=== PATIENT | female | born 1990 | race Caucasian/White ===

== ENCOUNTER 2016-08-03 09:16 | Day surgery (SDC) | payer BC ==
[~2016-08-03 09:16] MED LIST: Lactated Ringers 1,000 ML IV SCH; Lidocaine 1%/Sod Bicarbonate in NS 8.4% 1 ML Syringe PRN; Sodium Chloride 0.9% 10 ML Syringe FLUSH PRN
[2016-08-03] MEDS ORDERED: Bupivacaine 0.5%/EPINEPHrine 1:200,000 50 ML MDV ONE (10:06)
[2016-08-03] MEDS ORDERED: Lidocaine 1% with EPINEPHrine 1:100,000 20 ML MDV ONE (10:06)
[2016-08-03] MEDS ORDERED: Lidocaine 1% 30 ML SDV INJECT ONE (10:09)
[2016-08-03] MEDS ORDERED: Bacitracin Oint 15 GM Tube ONE (10:21)
[2016-08-03] MEDS ORDERED: Propofol 200 MG/20 ML SDV ONE ×2 (10:28→12:16)
[2016-08-03] MEDS ORDERED: Midazolam 1 MG/ML 2 ML SDV ONE (10:28)
[2016-08-03] MEDS ORDERED: fentaNYL 100 MCG/2 ML SDV ONE (10:28)
[2016-08-03] MEDS ORDERED: Lidocaine 1% 4 ML ONE (10:36)
[2016-08-03] MEDS ORDERED: ceFAZolin 1 GM Vial ONE (10:37)
--- NOTE | 2016-08-03 10:48 | PCM.PREANE ---
Preanesthetic Assessment - Procedure Proposed Procedure: Excision of wire localized Right breast lesion - Anesthesia/Transfusion/Family Hx Anesthesia History: Prior Anesthesia Without Reaction Family History of Anesthesia Reaction: No Transfusion History: No Prior Transfusion(s) Intubation History: Unknown Additional History: DVT in 2009 - Review of Systems General: No Symptoms Pulmonary: No Symptoms Cardiovascular: No Symptoms Gastrointestinal: No symptoms Neurological: No Symptoms Other: Reports: Easy Bleeding, Easy Bruising (pt on baby aspirin ) - Physical Assessment NPO Status Date: 08/02/16 NPO Status Time: 21:00 O2 Sat by Pulse Oximetry: 97 Respiratory Rate: 16 Vital Signs: Last Vital Signs Temp 36.6 C 08/03/16 09:35 Pulse 64 08/03/16 09:35 Resp 16 08/03/16 09:35 BP 117/71 08/03/16 09:35 Pulse Ox 97 08/03/16 09:35 Height: 1.8 m Weight: 75.296 kg ASA Class: 2 Mental Status: Alert & Oriented x3 Airway Class: Mallampati = 1 Dentition: Reports: Normal Dentition Thyro-Mental Finger Breadths: 3 Mouth Opening Finger Breadths: 3 ROM/Head Extension: Full Lungs: Clear to auscultation, Normal respiratory effort Cardiovascular: Regular Rate, Regular Rhythm - Lab Values: Laboratory Last Values Urine HCG, Qual Negative (NEGATIVE) 08/03/16 09:47 - Allergies Allergies/Adverse Reactions: Allergies Allergy/AdvReac Type Severity Reaction Status Date / Time sulfamethoxazole Allergy Other Verified 08/02/16 12:54 [From Bactrim] tetanus and diphtheria Allergy Other Verified 08/02/16 12:54 toxoids trimethoprim [From Bactrim] Allergy Other Verified 08/02/16 12:54 - Blood Blood Available: No Product(s) Available: None - Anesthesia Plan Pre-Op Medication Ordered: None - Acknowledgements Anesthesia Type Planned: General Anesthesia (LMA if MAC is not tolerated ), MAC Pt an Appropriate Candidate for the Planned Anesthesia: Yes Alternatives and Risks of Anesthesia Discussed w Pt/Guardian: Yes Pt/Guardian Understands and Agrees with Anesthesia Plan: Yes PreAnesthesia Questionnaire Cardiovascular History: Reports: Blood Clots/VTE/DVT Hematologic History: Reports: Other (See Below) Other Hematologic History: factor v leiden - Past Surgical History HEENT Surgical History: Reports: Adenoidectomy, Oral Surgery, Other (See Below) Other HEENT Surgeries/Procedures: wisdom teeth Female Surgical History: Reports: Breast Biopsy - SUBSTANCE USE Smoking Status *Q: Never Smoker Second Hand Smoke Exposure: No Recreational Drug Use History: No - HOME MEDS Home Medications: Home Meds Aspirin [Adult Low Dose Aspirin EC] 81 mg PO DAILY 08/02/16 [History] Pnv No.95/Ferrous Fum/Folic AC [ Multivitamin Tablet] 1 tab PO DAILY [History] - CURRENT (IN HOUSE) MEDS Current Meds: Current Medications Lactated Ringer's (Ringers, Lactated) 1,000 mls @ 125 mls/hr IV ASDIRECTED LORRIE Stop: 08/03/16 23:00 Lidocaine/Sodium Bicarbonate (Buffered Lidocaine 1% In Ns 8.4%) 0.25 ml .XX ONETIME PRN PRN Reason: Prior to IV Start Stop: 08/03/16 18:00 Sodium Chloride (Saline Flush) 10 ml FLUSH ASDIRECTED PRN PRN Reason: Keep Vein Open Stop: 08/03/16 18:00 Discontinued Medications Bacitracin (Bacitracin Oint) Confirm Administered Dose 15 gm .ROUTE .STK-MED ONE Stop: 08/03/16 10:22 Bupivacaine HCl/Epinephrine Bitart (Marcaine 0.5%/Epinephrine 1:200,000) Confirm Administered Dose 50 ml .ROUTE .STK-MED ONE Stop: 08/03/16 10:07 Cefazolin Sodium (Ancef) Confirm Administered Dose 2 gm .ROUTE .STK-MED ONE Stop: 08/03/16 10:38 Fentanyl (Sublimaze) Confirm Administered Dose 100 mcg .ROUTE .STK-MED ONE Stop: 08/03/16 10:29 Lidocaine HCl (Xylocaine-Mpf 1%) Confirm Administered Dose 4 mls @ as directed .ROUTE .STK-MED ONE Stop: 08/03/16 10:37 Lidocaine HCl (Xylocaine-Mpf 1%) 30 ml INJECT ONETIME ONE Stop: 08/03/16 10:10 Lidocaine/Epinephrine (Xylocaine 1% With Epinephrine 1:100,000) Confirm Administered Dose 20 ml .ROUTE .STK-MED ONE Stop: 08/03/16 10:07 Midazolam HCl (Versed 1 Mg/Ml) Confirm Administered Dose 2 mg .ROUTE .STK-MED ONE Stop: 08/03/16 10:29 Propofol (Diprivan 20 Ml) Confirm Administered Dose 400 mg .ROUTE .STK-MED ONE Stop: 08/03/16 10:29
[2016-08-03] MEDS ORDERED: Ketamine 500 mg/10 ML MDV ONE (11:26)
[2016-08-03] MEDS ORDERED: Ondansetron 4 MG/2 ML SDV ONE (11:57)
[2016-08-03] MEDS ORDERED: fentaNYL 100 MCG/2 ML SDV IVPUSH PRN (12:40)
--- NOTE | 2016-08-03 12:44 | PCM.OPNOTE ---
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 Right breast excisional biopsy specimen 2. Additional posterior margin 3. Additional medial superior margin Fluid Replacement, Intraop: 900 (mL crystalloid ) EBL in mLs: 5 Complications: None Condition: Good Free Text/Narrative:: INDICATION FOR PROCEDURE: The patient is a 25-year-old woman who is [place] by BRIDGETTE Earl for evaluation of a right breast lesion. The patient underwent an ultrasound-guided right breast core needle biopsy which demonstrated a fibroadenoma versus phyllodes tumor. The lesion was less than 1 cm in size. She presents today for excision of the lesion. Risk and benefits have been reviewed with her. She found these acceptable and agreed to proceed. DESCRIPTION OF PROCEDURE: The patient was taken to the operating room and placed in the supine position. After adequate sedation, sequential compressive devices were placed on the bilateral lower extremities and were functional throughout the case. Preoperative antibiotics were administer as per protocol. The right breast was prepped and draped in usual sterile fashion. Local anesthetic was injected in the area of the planned incision on the right areola. A circumareolar incision was made using a 15 blade. This was carried down through the breast tissue. The wire was followed into the area near the clip. Unfortunately there was not a post wire placement image to assess the where the wire was in relation to the clip. A biopsy specimen was obtained that was roughly 2 cm x 2 cm. Margins were marked using a silk suture, double stitch anteriorly, long stitch laterally, short stitch superiorly. The specimen was sent to radiology and there was no evidence of clip present in the specimen. 2 additional small specimens were obtained from the margins of the original biopsy cavity, each measuring about 1.5 cm x 1.5 cm, were then taken, an additional posterior margin and an additional medial superior margin. These specimens were also marked using a silk suture. They were sent for radiograph which did demonstrate the clip being present. The wound was then irrigated and hemostasis was obtained using electrocautery. The underlying breast tissue was reapproximated using 3-0 Vicryl suture in an interrupted fashion. The skin was then closed using a running subcuticular 4-0 Monocryl suture. Dermabond was applied. Fluffs and a breast binder was then applied. The patient was awakened from anesthesia and transferred to recovery room in stable condition having tolerated the procedure well. POSTOPERATIVE PLAN: I discussed with the patient and her my intraoperative findings and postoperative care recommendations. She is to wear compressive bra continuously for the next 2 weeks except when showering. She will follow-up with me in approximately 2 weeks. She has been provided with a prescription for [place] 5/325mg , Zofran ODT, and senna S. She is to call the office with any questions or concerns prior to her appointment. 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 She may continue her baby aspirin.
[2016-08-03] MEDS ORDERED: Acetaminophen/HYDROcodone 325-5 MG Tab PO ONE (12:53)
--- NOTE | 2016-08-03 12:54 | US ---
Needle localization of right breast nodule Procedure was explained to the patient. Patient agreed to the exam and consent had been signed. Patient prepped and draped in the usual fashion. Skin and deep tissues anesthetized with 1% lidocaine. Localization needle then placed through the solid abnormality. Hookwire then placed through the needle and needle removed. Hookwire confirmed to remain within the nodule at termination of ultrasound procedure. Impression: 1. Successful placement of hookwire through solid right breast nodule. Diagnostic code #2
--- NOTE | 2016-08-03 13:25 | PCM48HPAN ---
Post Anesthesia Note - EVALUATION WITHIN 48HRS OF ANESTHETIC Vital Signs in Normal Range: Yes Patient Participated in Evaluation: Yes Respiratory Function Stable: Yes Airway Patent: Yes Cardiovascular Function Stable: Yes Hydration Status Stable: Yes Pain Control Satisfactory: Yes Nausea and Vomiting Control Satisfactory: Yes Mental Status Recovered: Yes
[2016-08-03 13:40] VITALS: BP 110/72
--- NOTE | 2016-08-04 10:13 | MY ---
Specimen radiograph: Single radiograph was obtained showing localization wire in place. Nodular density is seen within the specimen confirming removal of localized nodule. Impression: 1. Specimen radiograph showing nodule within the removed sample compatible with successful biopsy. Diagnostic code #2
--- NOTE | 2016-08-04 10:13 | MY ---
Specimen radiograph: Two lumpectomy samples were received and radiographed. Stereotactic marking clip is seen. No additional abnormality is seen on specimen radiograph exam. Impression: 1. Removal of stereotactic marking clip. Diagnostic code #2
== END 2016-08-03 13:35 | disposition home or self-care (01) ==
LOC: JD.SDS 09:16
PROVIDERS: ATTEND Surgery
DX: D24.1 Benign neoplasm of right breast (principal); N60.31 Fibrosclerosis of right breast; Z88.1 Allergy status to other antibiotic agents; Z88.2 Allergy status to sulfonamides; Z88.8 Allergy status to other drugs, medicaments and biological substances; Z79.899 Other long term (current) drug therapy
CPT/HCPCS: 19120; 76098; 76942; 81025; 88305; A9270; J0690; J2250; J2405; J3010; J7120; 00400; J2704

== ENCOUNTER 2018-06-22 02:11 | Inpatient (IN) | payer BC ==
[2018-06-22] MEDS ORDERED: Lidocaine 1% 50 ML MDV INJECT ONE (02:37)
[2018-06-22] MEDS ORDERED: Calcium Carbonate 500 MG Tab.Chew PO PRN (02:37)
[2018-06-22] MEDS ORDERED: Ondansetron 4 MG/2 ML SDV IVPUSH PRN ×2 (02:37→03:26)
[2018-06-22] MEDS ORDERED: Sodium Chloride 0.9% 10 ML Syringe FLUSH PRN (02:37)
[2018-06-22] MEDS ORDERED: Nalbuphine 20 MG/ML 1 ML Syringe IVPUSH PRN (02:37)
[2018-06-22] MEDS: Lactated Ringers 1,000 ML IV SCH ×4 (02:54→08:26)
[2018-06-22] MEDS ORDERED: fentaNYL/Bupivacaine-NS 2 MCG/ML-0.125%/PF 100 ML Bag EPIDUR PRN (03:26)
[2018-06-22] MEDS ORDERED: ePHEDrine 50 MG/ML SDV IVPUSH PRN (03:26)
[2018-06-22] MEDS ORDERED: fentaNYL 100 MCG/2 ML SDV EPIDUR PRN (03:26)
--- NOTE | 2018-06-22 03:29 | PCM.PREANE ---
Preanesthetic Assessment - Anesthesia/Transfusion/Family Hx Anesthesia History: Prior Anesthesia Without Reaction Family History of Anesthesia Reaction: No Transfusion History: No Prior Transfusion(s) Intubation History: Unknown - Review of Systems General: No Symptoms Pulmonary: No Symptoms Cardiovascular: No Symptoms Gastrointestinal: No Symptoms (GERD) Neurological: No Symptoms Other: Reports: None (on lovenox for history of DVT in 2009/last dose of lovenox was 2100 on 06/20/2017), Easy Bleeding, Easy Bruising - Physical Assessment NPO Status Date: 06/21/18 NPO Status Time: 22:00 Pulse: 83 O2 Sat by Pulse Oximetry: 100 Respiratory Rate: 18 Blood Pressure: 130/84 Temperature: 36.8 C Vital Signs: Last Vital Signs Temp 36.8 C 06/22/18 03:00 Pulse 83 06/22/18 03:00 Resp 18 06/22/18 03:00 BP 130/84 06/22/18 03:00 Pulse Ox 100 06/22/18 03:00 Height: 1.8 m Weight: 93.848 kg ASA Class: 2 Mental Status: Alert & Oriented x3 Airway Class: Mallampati = 2 Dentition: Reports: Normal Dentition (braces noted), Caries Thyro-Mental Finger Breadths: 3 Mouth Opening Finger Breadths: 3 ROM/Head Extension: Full Lungs: Clear to Auscultation, Normal Respiratory Effort Cardiovascular: Regular Rate, Regular Rhythm, No Murmurs - Lab Values: Laboratory Last Values WBC 13.28 K/mm3 (3.98-10.04) H 06/22/18 02:50 RBC 4.07 M/mm3 (3.98-5.22) 06/22/18 02:50 Hgb 12.8 gm/L (11.2-15.7) 06/22/18 02:50 Hct 36.5 % (34.1-44.9) 06/22/18 02:50 MCV 89.7 fl (79.4-94.8) 06/22/18 02:50 MCH 31.4 pg (25.6-32.2) 06/22/18 02:50 MCHC 35.1 g/dl (32.2-35.5) 06/22/18 02:50 RDW Std Deviation 45.3 fL (36.4-46.3) 06/22/18 02:50 Plt Count 157 K/mm3 (182-369) L 06/22/18 02:50 MPV 11.3 fl (9.4-12.3) 06/22/18 02:50 Above labs reviewed and noted and within acceptable ranges to proceed with epidural if desired. - Allergies Allergies/Adverse Reactions: Allergies Allergy/AdvReac Type Severity Reaction Status Date / Time tetanus and diphtheria Allergy Other Verified 08/02/16 12:54 toxoids - Anesthesia Plan Pre-Op Medication Ordered: None - Acknowledgements Anesthesia Type Planned: Epidural Pt an Appropriate Candidate for the Planned Anesthesia: Yes Alternatives and Risks of Anesthesia Discussed w Pt/Guardian: Yes Pt/Guardian Understands and Agrees with Anesthesia Plan: Yes PreAnesthesia Questionnaire Cardiovascular History: Reports: Blood Clots/VTE/DVT Hematologic History: Reports: Other (See Below) Other Hematologic History: factor v leiden - Past Surgical History HEENT Surgical History: Reports: Adenoidectomy, Oral Surgery, Other (See Below) Other HEENT Surgeries/Procedures: wisdom teeth Female Surgical History: Reports: Breast Biopsy - HOME MEDS Home Medications: Home Meds Enoxaparin [Lovenox] 40 mg SUBCUT DAILY 06/22/18 [History] Pnv No.122/Iron/Folic Acid [ Multi Tablet] 1 each PO DAILY 06/22/18 [ History] - CURRENT (IN HOUSE) MEDS Current Meds: Current Medications Calcium Carbonate/Glycine (Tums) 1,000 mg PO Q2H PRN PRN Reason: Indigestion Last Admin: 06/22/18 02:59 Dose: 1,000 mg Lactated Ringer's (Ringers, Lactated) 1,000 mls @ 100 mls/hr IV ASDIRECTED LORRIE Last Admin: 06/22/18 02:54 Dose: 999 mls/hr Nalbuphine HCl (Nubain) 10 mg IVPUSH Q2H PRN PRN Reason: pain Ondansetron HCl (Zofran) 4 mg IVPUSH Q4H PRN PRN Reason: Nausea/Vomiting Last Admin: 06/22/18 03:04 Dose: 4 mg Sodium Chloride (Saline Flush) 10 ml FLUSH ASDIRECTED PRN PRN Reason: Keep Vein Open Discontinued Medications Lidocaine HCl (Xylocaine 1%) 20 ml INJECT ONETIME ONE Stop: 06/22/18 02:38
[2018-06-22] MEDS ORDERED: Phenylephrine 1 MG in Sodium Chloride 0.9% 10 ML IV SCH (03:30)
--- NOTE | 2018-06-22 08:06 | PCM.LDHP ---
L&D History of Present Illness - General Date of Service: 06/22/18 Admit Problem/Dx: Patient Status Order with Admit Dx/Problem 06/22/18 02:37 Patient Status [ADT] Routine 06/22/18 02:57 Patient Status [ADT] Routine Admission Diagnosis/Problem Admission Diagnosis/Problem Active labor Source of Information: Patient History Limitations: Reports: No Limitations - History of Present Illness Introduction:: 27-year-old 000 ELY 06/22/18 at estimated gestational age of 40 weeks 0 days presented to labor and delivery with contractions at 0-16 hours on . At that time cervix 4-5 cm dilated 80% effaced -2 posterior and soft. Bulging bag of aldridge. Amniotomy performed at 0752 hrs. light meconium-stained amnionic fluid. 04/03/18 blood type A positive, antibody screen negative rubella negative (needs MMR after delivery), syphilis IgG nonreactive hepatitis B surface antigen nonreactive HIV normal (nonreactive) 04/03/18 hemoglobin 12.01 hour OB glucose screen 133 hour glucose 85 antibody screen negative 05/29/18 GBS not detected. Patient has factor V Leiden deficiency has been taking Lovenox 40 mg taking 1 injection subcutaneous daily until 48 hours ago. Patient has had prior DVT SCDs in place and functioning. Plan labor and delivery. This note was created, at least in part, by the use of [employer] voice dictation system. Inadvertent typographical errors, due to software recognition problems, may exist. Timing/Duration: Reports: minutes:, hour(s):, intermittent Location, : Reports: Abdomen, Lower back, Pelvic, Uterus Quality: Reports: Ache, Pressure Pain Score: 7 Improves with: Reports: None Worsens with: Reports: None - Related Data Allergies/Adverse Reactions: Allergies Allergy/AdvReac Type Severity Reaction Status Date / Time tetanus and diphtheria Allergy Other Verified 08/02/16 12:54 toxoids Home Medications: Home Meds Enoxaparin [Lovenox] 40 mg SUBCUT DAILY 06/22/18 [History] Pnv No.122/Iron/Folic Acid [ Multi Tablet] 1 each PO DAILY 06/22/18 [ History] Past Medical History Cardiovascular History: Reports: Blood Clots/VTE/DVT 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: Hematologic History: Reports: Other (See Below) Other Hematologic History: factor v leiden - Past Surgical History HEENT Surgical History: Reports: Adenoidectomy, Oral Surgery, Other (See Below) Other HEENT Surgeries/Procedures: wisdom teeth Female Surgical History: Reports: Breast Biopsy Social & Family History - Family History Family Medical History: Noncontributory - Tobacco Use Smoking Status *Q: Never Smoker - Recreational Drug Use Recreational Drug Use: No H&P Review of Systems - Review of Systems: Review Of Systems: See Below General: Reports: No Symptoms HEENT: Reports: No Symptoms Pulmonary: Reports: No Symptoms Cardiovascular: Reports: No Symptoms Gastrointestinal: Reports: No Symptoms Genitourinary: Reports: No Symptoms Musculoskeletal: Reports: No Symptoms Skin: Reports: No Symptoms Psychiatric: Reports: No Symptoms Neurological: Reports: No Symptoms Hematologic/Lymphatic: Reports: No Symptoms Immunologic: Reports: No Symptoms L&D Exam - Exam Exam: See Below - Vital Signs Vital Signs: Last Vital Signs Temp 98.2 F 06/22/18 03:40 Pulse 76 06/22/18 05:31 Resp 18 06/22/18 03:40 BP 119/66 06/22/18 04:30 Pulse Ox 100 06/22/18 03:40 Weight: 206 lb 14.4 oz - OB Specific Fundal Height In cm: 39 Contraction Duration (sec): 60 Contraction Frequency (min): 3 Contraction Intensity: Moderate to Strong Movement: Active Heart Tones: Present Heart Tones per Min: 125 Heart Rate (FHR) Variability: Moderate (6-25 bmp) Presentation: Vertex - Das Score Das Score Cervix Position: Anterior Das Score Consistency: Soft Das Score Effacement: >80% Das Score Dilation: > 5 cm Das Score 's Station: -1 ,0 (At 0752 hrs.) Das Score Total: 12 - Exam General: Alert, Oriented HEENT: Conjunctiva Clear, Mucosa Moist & [place] Neck: Supple, Trachea Midline Lungs: Clear to Auscultation, Normal Respiratory Effort Cardiovascular: Regular Rate, Regular Rhythm GI/Abdominal Exam: Normal Bowel Sounds, Soft, Non-Tender Extremities: Normal Inspection, Normal Range of Motion, Non-Tender, No Pedal Edema, Normal Capillary Refill Skin: Warm, Dry, Intact Psychiatric: Alert, Normal Affect, Normal Mood - Patient Data Lab Results Last 24 hrs: Laboratory Results - last 24 hr 06/22/18 06/22/18 Range/Units 02:50 02:50 WBC 13.28 H (3.98-10.04) K/mm3 RBC 4.07 (3.98-5.22) M/mm3 Hgb 12.8 (11.2-15.7) gm/L Hct 36.5 (34.1-44.9) % MCV 89.7 (79.4-94.8) fl MCH 31.4 (25.6-32.2) pg MCHC 35.1 (32.2-35.5) g/dl RDW Std Deviation 45.3 (36.4-46.3) fL Plt Count 157 L (182-369) K/mm3 MPV 11.3 (9.4-12.3) fl Blood Type A POSITIVE Gel Antibody Screen Negative Result Diagrams: 06/22/18 02:50 - Problem List (1) 40 weeks gestation of SNOMED Code(s): 78866711 ICD Code: Z3A.40 - 40 WEEKS GESTATION OF Status: Acute Current Visit: Yes (2) Thin meconium stained amniotic fluid SNOMED Code(s): 120478104 ICD Code: P96.83 - MECONIUM STAINING Status: Acute Current Visit: Yes (3) Factor V deficiency SNOMED Code(s): 4327592 ICD Code: D68.2 - HEREDITARY DEFICIENCY OF OTHER CLOTTING FACTORS Status: Acute Current Visit: Yes Problem List Initiated/Reviewed/Updated: No Orders Last 24hrs: Active Orders 24 hr Category Date Time Status Patient Status [ADT] Routine ADT 06/22/18 02:57 Active Activity as Tolerated [RC] PFP Care 06/22/18 02:37 Active Antiembolic Devices [RC] PER UNIT ROUTINE Care 06/22/18 05:10 Active Communication Order [RC] ASDIRECTED Care 06/22/18 02:37 Active Insert Urinary Catheter [OM.PC] Q24H Care 06/22/18 02:45 Ordered Notify Provider [RC] ASDIRECTED Care 06/22/18 03:26 Active Notify Provider [RC] PFP Care 06/22/18 02:37 Active Notify Provider [RC] PRN Care 06/22/18 02:37 Active Peripheral IV Care [RC] Q2HR Care 06/22/18 02:37 Active Urinary Catheter Assessment [RC] ASDIRECTED Care 06/22/18 02:37 Active Vital Signs [RC] PER UNIT ROUTINE Care 06/22/18 02:37 Active Regular Diet [DIET] Diet 06/22/18 Breakfast Active PATIENT RETYPE [BBK] Routine Lab 06/22/18 03:42 Ordered RAPID PLASMA REAGIN,RPR [CHEM] Routine Lab 06/22/18 02:50 Received Calcium Carbonate [Tums] Med 06/22/18 02:37 Active 1,000 mg PO Q2H PRN Lactated Ringers [Ringers, Lactated] 1,000 ml Med 06/22/18 02:45 Active IV ASDIRECTED Nalbuphine [Nubain] Med 06/22/18 02:37 Active 10 mg IVPUSH Q2H PRN Ondansetron [Zofran] Med 06/22/18 03:26 Active 4 mg IVPUSH ONETIME PRN Ondansetron [Zofran] Med 06/22/18 02:37 Active 4 mg IVPUSH Q4H PRN Oxytocin [Pitocin] 20 unit Med 06/22/18 06:30 Active Lactated Ringers [Ringers, Lactated] 1,000 ml IV ASDIRECTED Phenylephrine [Rich-Synephrine] 1 mg Med 06/22/18 03:30 Active Sodium Chloride 0.9% [Normal Saline] 10 ml IV TITRATE Sodium Chloride 0.9% [Saline Flush] Med 06/22/18 02:37 Active 10 ml FLUSH ASDIRECTED PRN ePHEDrine [ePHEDrine sulfate] Med 06/22/18 03:26 Active 5 mg IVPUSH ASDIRECTED PRN fentaNYL [Sublimaze] Med 06/22/18 03:26 Active 100 mcg EPIDUR Q3H PRN fentaNYL/Bupivacaine/NS/PF [[id number] 2 MCG/ML- Med 06/22/18 03:26 Active 0.125%] 100 ml EPIDUR ASDIRECTED PRN Electronic Heart Tones Ext w TOCO [WOMSER] Oth 06/22/18 02:37 Ordered Routine Electronic Heart Tones Internal [WOMSER] Per Unit Oth 06/22/18 02:37 Ordered Routine Peripheral IV Insertion Adult [OM.PC] Routine Oth 06/22/18 02:37 Ordered SCD [Sequential Compression Device] [OM.PC] Routine Oth 06/22/18 05:10 Ordered Resuscitation Status Routine Resus Stat 06/22/18 02:37 Ordered Medication Orders Calcium Carbonate/Glycine (Tums) 1,000 mg PO Q2H PRN PRN Reason: Indigestion Last Admin: 06/22/18 02:59 Dose: 1,000 mg Ephedrine Sulfate (Ephedrine Sulfate) 5 mg IVPUSH ASDIRECTED PRN PRN Reason: Hypotension Fentanyl (Sublimaze) 100 mcg EPIDUR Q3H PRN PRN Reason: Pain Last Admin: 06/22/18 03:44 Dose: 100 mcg Fentanyl/Bupivacaine HCl (Ujejehbq-Wxgtx-Gr 2 Mcg/Ml-0.125%) 100 ml EPIDUR ASDIRECTED PRN PRN Reason: Pain Last Admin: 06/22/18 03:45 Dose: 100 ml Lactated Ringer's (Ringers, Lactated) 1,000 mls @ 100 mls/hr IV ASDIRECTED LORRIE Last Admin: 06/22/18 04:04 Dose: 500 mls/hr Infusion: 06/22/18 04:04 Dose: 999 mls/hr Admin: 06/22/18 03:27 Dose: 999 mls/hr Infusion: 06/22/18 03:27 Dose: 999 mls/hr Admin: 06/22/18 02:54 Dose: 999 mls/hr Phenylephrine HCl 1 mg/ Sodium (Chloride) 10.1 mls @ 1 mls/sec IV TITRATE LORRIE; Protocol Oxytocin 20 unit/ Lactated (Ringer's) 1,002 mls @ 500 mls/hr IV ASDIRECTED LORRIE ; Protocol Nalbuphine HCl (Nubain) 10 mg IVPUSH Q2H PRN PRN Reason: pain Ondansetron HCl (Zofran) 4 mg IVPUSH Q4H PRN PRN Reason: Nausea/Vomiting Last Admin: 06/22/18 03:04 Dose: 4 mg Ondansetron HCl (Zofran) 4 mg IVPUSH ONETIME PRN PRN Reason: Nausea/Vomiting Sodium Chloride (Saline Flush) 10 ml FLUSH ASDIRECTED PRN PRN Reason: Keep Vein Open Assessment/Plan Comment:: Plan delivery
--- NOTE | 2018-06-22 08:48 | PCM.SN ---
- Free Text/Narrative Note: Cervix is 9 cm dilated, 100% effaced, anterior, soft. Vertex 0 station
--- NOTE | 2018-06-22 10:36 | PCM.SN ---
- Free Text/Narrative Note: Patient's cervix is complete at 10:30. Began pushing. Category 1 heart rate.
--- NOTE | 2018-06-22 11:20 | PCM.SN ---
- Free Text/Narrative Note: Has been pushing for 45 minutes, vertex at +1/+2. Epidural turned off to allow sensations to return and provide stronger urge to push.
--- NOTE | 2018-06-22 12:39 | PCM.DEL ---
L & D Note - General Info Date of Service: 06/22/18 Mother's Due Date: 06/22/18 - Delivery Note Labor: Spontaneous, Augmented by ARM Delivery Outcome: Livebirth (Live female 06/22/18Sunday at 1200 hrs. FRITZ. Apgars 8/9 meconium-stained amnionic fluid [email or web address] 4620 g/10 lbs. 3 oz. ) Delivery Method: Spontaneous Vaginal Delivery-Single Delivery Mode: Spontaneous Presentation: Left Occiput Anterior (FRITZ) Nuchal Cord: None Prep: Povidone-Iodine (Betadine Anesthesia Type: Epidural Amniotic Fluid Description: Meconium Stained Episiotomy Type: None Laceration: 2nd Degree ("Y-shaped" midline perineum repair with 3-0 Monocryl 2) Suture type: Other (Monocryl 2) Suture size: 3-0 Placenta: Intact, Spontaneous (Intact discarded delivered at 1204 hrs. Sunday06/22/18.) Cord: 3 Vessels Estimated Blood Loss: 500 Resuscitation Needed: No Glidden: Bulb Syringe, Stimulated, Warmed, [place] Used, Warmer Used Provider: Slick Wayne Score 1 min: 8 Score 5 min: 9 (Dr Ambrosio called ) - General Info Date of Service: 06/22/18 Functional Status: Reports: Pain Controlled - Review of Systems General: Reports: No Symptoms HEENT: Reports: No Symptoms Pulmonary: Reports: No Symptoms Cardiovascular: Reports: No Symptoms Gastrointestinal: Reports: No Symptoms Genitourinary: Reports: No Symptoms Musculoskeletal: Reports: No Symptoms Skin: Reports: No Symptoms Neurological: Reports: No Symptoms Psychiatric: Reports: No Symptoms - Patient Data Vitals - Most Recent: Last Vital Signs Temp 98.2 F 06/22/18 03:40 Pulse 76 06/22/18 05:31 Resp 18 06/22/18 03:40 BP 119/66 06/22/18 04:30 Pulse Ox 100 06/22/18 03:40 Weight - Most Recent: 206 lb 14.4 oz I&O - Last 24 Hours: Intake & Output 06/21/18 06/22/18 06/22/18 22:59 06:59 14:59 Intake Total 1999 Balance 1999 Lab Results Last 24 Hours: Laboratory Results - last 24 hr 05/18/19 05/18/19 Range/Units 02:50 02:50 WBC 13.28 H (3.98-10.04) K/mm3 RBC 4.07 (3.98-5.22) M/mm3 Hgb 12.8 (11.2-15.7) gm/L Hct 36.5 (34.1-44.9) % MCV 89.7 (79.4-94.8) fl MCH 31.4 (25.6-32.2) pg MCHC 35.1 (32.2-35.5) g/dl RDW Std Deviation 45.3 (36.4-46.3) fL Plt Count 157 L (182-369) K/mm3 MPV 11.3 (9.4-12.3) fl Blood Type A POSITIVE Gel Antibody Screen Negative Med Orders - Current: Current Medications Calcium Carbonate/Glycine (Tums) 1,000 mg PO Q2H PRN PRN Reason: Indigestion Last Admin: 06/22/18 02:59 Dose: 1,000 mg Ephedrine Sulfate (Ephedrine Sulfate) 5 mg IVPUSH ASDIRECTED PRN PRN Reason: Hypotension Fentanyl (Sublimaze) 100 mcg EPIDUR Q3H PRN PRN Reason: Pain Last Admin: 06/22/18 03:44 Dose: 100 mcg Fentanyl/Bupivacaine HCl (Ozajnqbk-Teodj-Al 2 Mcg/Ml-0.125%) 100 ml EPIDUR ASDIRECTED PRN PRN Reason: Pain Last Admin: 06/22/18 03:45 Dose: 100 ml Lactated Ringer's (Ringers, Lactated) 1,000 mls @ 100 mls/hr IV ASDIRECTED LORRIE Last Admin: 06/22/18 08:26 Dose: 100 mls/hr Phenylephrine HCl 1 mg/ Sodium (Chloride) 10.1 mls @ 1 mls/sec IV TITRATE LORRIE; Protocol Oxytocin 20 unit/ Lactated (Ringer's) 1,002 mls @ 500 mls/hr IV ASDIRECTED LORRIE ; Protocol Nalbuphine HCl (Nubain) 10 mg IVPUSH Q2H PRN PRN Reason: pain Ondansetron HCl (Zofran) 4 mg IVPUSH Q4H PRN PRN Reason: Nausea/Vomiting Last Admin: 06/22/18 03:04 Dose: 4 mg Ondansetron HCl (Zofran) 4 mg IVPUSH ONETIME PRN PRN Reason: Nausea/Vomiting Sodium Chloride (Saline Flush) 10 ml FLUSH ASDIRECTED PRN PRN Reason: Keep Vein Open Discontinued Medications Lidocaine HCl (Xylocaine 1%) 20 ml INJECT ONETIME ONE Stop: 06/22/18 02:38 - Exam General: Alert, Oriented HEENT: Pupils Equal, Mucous Membr. Moist/[place] Neck: Supple Lungs: Clear to Auscultation, Normal Respiratory Effort Cardiovascular: Regular Rate, Regular Rhythm GI/Abdominal Exam: Normal Bowel Sounds, Soft, Non-Tender Extremities: Normal Inspection, Normal Range of Motion, Non-Tender, No Pedal Edema, Normal Capillary Refill Skin: Warm, Dry, Intact Psy/Mental Status: Alert, Normal Affect, Normal Mood - Problem List & Annotations (1) 40 weeks gestation of SNOMED Code(s): 66187591 Code(s): Z3A.40 - 40 WEEKS GESTATION OF Status: Acute Current Visit: Yes (2) Thin meconium stained amniotic fluid SNOMED Code(s): 792881593 Code(s): P96.83 - MECONIUM STAINING Status: Acute Current Visit: Yes (3) Meconium stained amniotic fluid, delivered, current hospitalization SNOMED Code(s): 300819029, 373109536 Code(s): O77.0 - LABOR AND DELIVERY COMPLICATED BY MECONIUM IN AMNIOTIC FLUID Status: Acute Current Visit: Yes (4) Factor V Leiden mutation affecting SNOMED Code(s): 938305094 Code(s): O99.119 - OTH DIS OF BLD/BLD-FORM ORG/IMMUN MECHNSM COMP PREG,UNSP TRI; D68.51 - ACTIVATED PROTEIN C RESISTANCE Status: Acute Current Visit: Yes (5) Factor V Leiden SNOMED Code(s): 942095173 Code(s): D68.51 - ACTIVATED PROTEIN C RESISTANCE Status: Acute Current Visit: Yes (6) Second degree perineal laceration during delivery SNOMED Code(s): 2394920 Code(s): O70.1 - SECOND DEGREE PERINEAL LACERATION DURING DELIVERY Status: Acute Current Visit: Yes (7) Excessive growth affecting management of mother, delivered SNOMED Code(s): 31392041, 585517143 Code(s): O36.60X0 - MATERNAL CARE FOR EXCESS GROWTH, UNSP TRIMESTER, UNSP Status: Acute Current Visit: Yes - Problem List Review Problem List Initiated/Reviewed/Updated: No - My Orders Last 24 Hours: My Active Orders 06/22/18 02:37 Activity as Tolerated [RC] PFP Communication Order [RC] ASDIRECTED Notify Provider [RC] PFP Notify Provider [RC] PRN Peripheral IV Care [RC] Q2HR Urinary Catheter Assessment [RC] ASDIRECTED Vital Signs [RC] PER UNIT ROUTINE Calcium Carbonate [Tums] 1,000 mg PO Q2H PRN Nalbuphine [Nubain] 10 mg IVPUSH Q2H PRN Ondansetron [Zofran] 4 mg IVPUSH Q4H PRN Sodium Chloride 0.9% [Saline Flush] 10 ml FLUSH ASDIRECTED PRN Electronic Heart Tones Ext w TOCO [WOMSER] Routine Electronic Heart Tones Internal [WOMSER] Per Unit Routine Peripheral IV Insertion Adult [OM.PC] Routine Resuscitation Status Routine 06/22/18 02:45 Insert Urinary Catheter [OM.PC] Q24H Lactated Ringers [Ringers, Lactated] 1,000 ml IV ASDIRECTED 06/22/18 02:50 RAPID PLASMA REAGIN,RPR [CHEM] Routine 06/22/18 02:57 Patient Status [ADT] Routine 06/22/18 05:10 Antiembolic Devices [RC] PER UNIT ROUTINE SCD [Sequential Compression Device] [OM.PC] Routine 06/22/18 06:30 Oxytocin [Pitocin] 20 unit Lactated Ringers [Ringers, Lactated] 1,000 ml IV ASDIRECTED 06/22/18 Breakfast Regular Diet [DIET] - Assessment Assessment:: Spontaneous vaginal delivery see note above - Plan Plan:: Plan delivery
[2018-06-22] MEDS ORDERED: Lanolin 100% Cream 7 GM Tube TOP PRN (13:49)
[2018-06-22] MEDS ORDERED: Witch Hazel Medicated Pads 40/Jar TOP PRN (13:49)
[2018-06-22] MEDS: Acetaminophen 325 MG Tab PO PRN (15:35)
[2018-06-22] MEDS ORDERED: Benzocaine/Menthol 20%-0.5% Spray 56 GM Canister TOP PRN (16:16)
[2018-06-22] MEDS: Acetaminophen/oxyCODONE 325-5 MG Tab PO PRN (19:01)
[2018-06-22] MEDS: Docusate Sodium 100 MG Cap PO PRN (20:18)
[2018-06-22] MEDS: Misoprostol 200 MCG Tab PO SCH (20:18)
[2018-06-22] MEDS ORDERED: Enoxaparin 40 MG/0.4 ML Syringe SUBCUT SCH (21:00)
[2018-06-23] MEDS: Acetaminophen/oxyCODONE 325-5 MG Tab PO PRN ×3 (00:22→16:49)
[2018-06-23] MEDS: Misoprostol 200 MCG Tab PO SCH ×5 (00:22→16:49)
--- NOTE | 2018-06-23 12:12 | PCM.SN ---
- Free Text/Narrative Note: day 1 Patient's hemoglobin prior to delivery 12.8, present hemoglobin 9.3 patient is symptomatic with dizziness when ambulating. Patient feeling "tired". Due to the symptomatic anemia will transfuse 1 unit of blood (hemoglobin not less than 7, but symptomatic.) Chest is clear no abnormal breath sounds. Cardiovascular exam is normal. No abnormal heart sounds. Abdomen is soft uterus is involuting normally. No heavy vaginal bleeding. No leg cramping. Continue SCDs. Patient will take Lovenox 40 mg subcutaneous now (factor V Leiden deficiency, prior deep vein thrombosis) CBC in a.m. Consent for transfusion of human blood her hemoglobin blood products completed at 1210 hrs. 06/23/18. Long discussion had with patient and family about hepatitis 80s and blood transfusion reaction.
[2018-06-23] MEDS: Enoxaparin 40 MG/0.4 ML Syringe SUBCUT SCH (12:31)
[2018-06-23] MEDS ORDERED: Sodium Chloride 0.9% 500 ML ONE (14:36)
[2018-06-23] MEDS: Sodium Chloride 0.9% 500 ML IV ONE ×2 (14:39→14:40)
[2018-06-23] MEDS: Docusate Sodium 100 MG Cap PO PRN (21:25)
[2018-06-24] MEDS: Acetaminophen 325 MG Tab PO PRN (02:26)
--- NOTE | 2018-06-24 06:45 | PCM.DCSUM1 ---
Discharge Summary - Hospital Course Free Text/Narrative:: [facility] LIVE L/D Delivery Note Patient Name: ЕЛЕНА CONNER Date of : 88 Patient Status: Inpatient Attending Provider: Slick Wayne Date: 06/22/18 12:32 Initialization Date: 06/22/18 12:32 L & D Note - General Info Date of Service: 06/22/18 Mother's Due Date: 06/22/18 - Delivery Note Labor: Spontaneous, Augmented by ARM Delivery Outcome: Livebirth (Live female 06/22/18Sunday at 1200 hrs. FRITZ. Apgars 8/9 meconium-stained amnionic fluid [email or web address] 4620 g/10 lbs. 3 oz. ) Infant Delivery Method: Spontaneous Vaginal Delivery-Single Infant Delivery Mode: Spontaneous Presentation: Left Occiput Anterior (FRITZ) Nuchal Cord: None Prep: Povidone-Iodine (Betadine Anesthesia Type: Epidural Amniotic Fluid Description: Meconium Stained Episiotomy Type: None Laceration: 2nd Degree ("Y-shaped" midline perineum repair with 3-0 Monocryl 2) Suture type: Other (Monocryl 2) Suture size: 3-0 Placenta: Intact, Spontaneous (Intact discarded delivered at 1204 hrs. Sunday06/22/18.) Cord: 3 Vessels Estimated Blood Loss: 500 Resuscitation Needed: No : Bulb Syringe, Stimulated, Warmed, [employer] Used, Warmer Used Provider: Slick Wayne Score 1 min: 8 Score 5 min: 9 (Dr Ambrosio called ) - General Info Date of Service: 06/22/18 Functional Status: Reports: Pain Controlled - Review of Systems General: Reports: No Symptoms HEENT: Reports: No Symptoms Pulmonary: Reports: No Symptoms Cardiovascular: Reports: No Symptoms Gastrointestinal: Reports: No Symptoms Genitourinary: Reports: No Symptoms Musculoskeletal: Reports: No Symptoms Skin: Reports: No Symptoms Neurological: Reports: No Symptoms Psychiatric: Reports: No Symptoms - Patient Data Vitals - Most Recent: Last Vital Signs Temp 98.2 F 06/22/18 03:40 Pulse 76 06/22/18 05:31 Resp 18 05/18/19 03:40 BP 119/66 06/22/18 04:30 Pulse Ox 100 06/22/18 03:40 Weight - Most Recent: 206 lb 14.4 oz I&O - Last 24 Hours: Intake & Output 06/21/18 06/22/18 06/22/18 22:59 06:59 14:59 Intake Total 1999 Balance 1999 Lab Results Last 24 Hours: Laboratory Results - last 24 hr 06/22/18 06/22/18 Range/Units 02:50 02:50 WBC 13.28 H (3.98-10.04) K/mm3 RBC 4.07 (3.98-5.22) M/mm3 Hgb 12.8 (11.2-15.7) gm/L Hct 36.5 (34.1-44.9) % MCV 89.7 (79.4-94.8) fl MCH 31.4 (25.6-32.2) pg MCHC 35.1 (32.2-35.5) g/dl RDW Std Deviation 45.3 (36.4-46.3) fL Plt Count 157 L (182-369) K/mm3 MPV 11.3 (9.4-12.3) fl Blood Type A POSITIVE Gel Antibody Screen Negative Med Orders - Current: Current Medications Calcium Carbonate/Glycine (Tums) 1,000 mg PO Q2H PRN PRN Reason: Indigestion Last Admin: 06/22/18 02:59 Dose: 1,000 mg Ephedrine Sulfate (Ephedrine Sulfate) 5 mg IVPUSH ASDIRECTED PRN PRN Reason: Hypotension Fentanyl (Sublimaze) 100 mcg EPIDUR Q3H PRN PRN Reason: Pain Last Admin: 06/22/18 03:44 Dose: 100 mcg Fentanyl/Bupivacaine HCl (Tkahtbvj-Uitxy-Pw 2 Mcg/Ml-0.125%) 100 ml EPIDUR ASDIRECTED PRN PRN Reason: Pain Last Admin: 06/22/18 03:45 Dose: 100 ml Lactated Ringer's (Ringers, Lactated) 1,000 mls @ 100 mls/hr IV ASDIRECTED LORRIE Last Admin: 06/22/18 08:26 Dose: 100 mls/hr Phenylephrine HCl 1 mg/ Sodium (Chloride) 10.1 mls @ 1 mls/sec IV TITRATE LORRIE; Protocol Oxytocin 20 unit/ Lactated (Ringer's) 1,002 mls @ 500 mls/hr IV ASDIRECTED LORRIE ; Protocol Nalbuphine HCl (Nubain) 10 mg IVPUSH Q2H PRN PRN Reason: pain Ondansetron HCl (Zofran) 4 mg IVPUSH Q4H PRN PRN Reason: Nausea/Vomiting Last Admin: 06/22/18 03:04 Dose: 4 mg Ondansetron HCl (Zofran) 4 mg IVPUSH ONETIME PRN PRN Reason: Nausea/Vomiting Sodium Chloride (Saline Flush) 10 ml FLUSH ASDIRECTED PRN PRN Reason: Keep Vein Open Discontinued Medications Lidocaine HCl (Xylocaine 1%) 20 ml INJECT ONETIME ONE Stop: 06/22/18 02:38 - Exam General: Alert, Oriented HEENT: Pupils Equal, Mucous Membr. Moist/[place] Neck: Supple Lungs: Clear to Auscultation, Normal Respiratory Effort Cardiovascular: Regular Rate, Regular Rhythm GI/Abdominal Exam: Normal Bowel Sounds, Soft, Non-Tender Extremities: Normal Inspection, Normal Range of Motion, Non-Tender, No Pedal Edema, Normal Capillary Refill Skin: Warm, Dry, Intact Psy/Mental Status: Alert, Normal Affect, Normal Mood - Problem List & Annotations (1) 40 weeks gestation of SNOMED Code(s): 59502109 Code(s): Z3A.40 - 40 WEEKS GESTATION OF Status: Acute Current Visit: Yes (2) Thin meconium stained amniotic fluid SNOMED Code(s): 539077721 Code(s): P96.83 - MECONIUM STAINING Status: Acute Current Visit: Yes (3) Meconium stained amniotic fluid, delivered, current hospitalization SNOMED Code(s): 942656580, 224771647 Code(s): O77.0 - LABOR AND DELIVERY COMPLICATED BY MECONIUM IN AMNIOTIC FLUID Status: Acute Current Visit: Yes (4) Factor V Leiden mutation affecting SNOMED Code(s): 439344172 Code(s): O99.119 - OTH DIS OF BLD/BLD-FORM ORG/IMMUN MECHNSM COMP PREG,UNSP TRI; D68.51 - ACTIVATED PROTEIN C RESISTANCE Status: Acute Current Visit: Yes (5) Factor V Leiden SNOMED Code(s): 790810157 Code(s): D68.51 - ACTIVATED PROTEIN C RESISTANCE Status: Acute Current Visit: Yes (6) Second degree perineal laceration during delivery SNOMED Code(s): 5562018 Code(s): O70.1 - SECOND DEGREE PERINEAL LACERATION DURING DELIVERY Status: Acute Current Visit: Yes (7) Excessive growth affecting management of mother, delivered SNOMED Code(s): 76032531, 237564850 Code(s): O36.60X0 - MATERNAL CARE FOR EXCESS GROWTH, UNSP TRIMESTER, UNSP Status: Acute Current Visit: Yes - Problem List Review Problem List Initiated/Reviewed/Updated: No - My Orders Last 24 Hours: My Active Orders 06/22/18 02:37 Activity as Tolerated [RC] PFP Communication Order [RC] ASDIRECTED Notify Provider [RC] PFP Notify Provider [RC] PRN Peripheral IV Care [RC] Q2HR Urinary Catheter Assessment [RC] ASDIRECTED Vital Signs [RC] PER UNIT ROUTINE Calcium Carbonate [Tums] 1,000 mg PO Q2H PRN Nalbuphine [Nubain] 10 mg IVPUSH Q2H PRN Ondansetron [Zofran] 4 mg IVPUSH Q4H PRN Sodium Chloride 0.9% [Saline Flush] 10 ml FLUSH ASDIRECTED PRN Electronic Heart Tones Ext w TOCO [WOMSER] Routine Electronic Heart Tones Internal [WOMSER] Per Unit Routine Peripheral IV Insertion Adult [OM.PC] Routine Resuscitation Status Routine 06/22/18 02:45 Insert Urinary Catheter [OM.PC] Q24H Lactated Ringers [Ringers, Lactated] 1,000 ml IV ASDIRECTED 06/22/18 02:50 RAPID PLASMA REAGIN,RPR [CHEM] Routine 06/22/18 02:57 Patient Status [ADT] Routine 06/22/18 05:10 Antiembolic Devices [RC] PER UNIT ROUTINE SCD [Sequential Compression Device] [OM.PC] Routine 06/22/18 06:30 Oxytocin [Pitocin] 20 unit Lactated Ringers [Ringers, Lactated] 1,000 ml IV ASDIRECTED 06/22/18 Breakfast Regular Diet [DIET] - Assessment Assessment:: Spontaneous vaginal delivery see note above - Plan Plan:: Plan delivery HPI Initial Comments: [facility] LIVE L/D Delivery Note Patient Name: ЕЛЕНА CONNER Date of : 88 Patient Status: Inpatient Attending Provider: Slick Wayne Date: 06/22/18 12:32 Initialization Date: 06/22/18 12:32 L & D Note - General Info Date of Service: 06/22/18 Mother's Due Date: 06/22/18 - Delivery Note Labor: Spontaneous, Augmented by ARM Delivery Outcome: Livebirth (Live female 06/22/18Sunday at 1200 hrs. FRITZ. Apgars 8/9 meconium-stained amnionic fluid [email or web address] 4620 g/10 lbs. 3 oz. ) Infant Delivery Method: Spontaneous Vaginal Delivery-Single Delivery Mode: Spontaneous Presentation: Left Occiput Anterior (FRITZ) Nuchal Cord: None Prep: Povidone-Iodine (Betadine Anesthesia Type: Epidural Amniotic Fluid Description: Meconium Stained Episiotomy Type: None Laceration: 2nd Degree ("Y-shaped" midline perineum repair with 3-0 Monocryl 2) Suture type: Other (Monocryl 2) Suture size: 3-0 Placenta: Intact, Spontaneous (Intact discarded delivered at 1204 hrs. Sunday06/22/18.) Cord: 3 Vessels Estimated Blood Loss: 500 Resuscitation Needed: No : Bulb Syringe, Stimulated, Warmed, [employer] Used, Warmer Used Provider: Slick Wayne Score 1 min: 8 Score 5 min: 9 (Dr Ambrosio called ) - General Info Date of Service: 06/22/18 Functional Status: Reports: Pain Controlled - Review of Systems General: Reports: No Symptoms HEENT: Reports: No Symptoms Pulmonary: Reports: No Symptoms Cardiovascular: Reports: No Symptoms Gastrointestinal: Reports: No Symptoms Genitourinary: Reports: No Symptoms Musculoskeletal: Reports: No Symptoms Skin: Reports: No Symptoms Neurological: Reports: No Symptoms Psychiatric: Reports: No Symptoms - Patient Data Vitals - Most Recent: Last Vital Signs Temp 98.2 F 06/22/18 03:40 Pulse 76 06/22/18 05:31 Resp 18 06/22/18 03:40 BP 119/66 06/22/18 04:30 Pulse Ox 100 06/22/18 03:40 Weight - Most Recent: 206 lb 14.4 oz I&O - Last 24 Hours: Intake & Output 06/21/18 06/22/18 06/22/18 22:59 06:59 14:59 Intake Total 1999 Balance 1999 Lab Results Last 24 Hours: Laboratory Results - last 24 hr 06/22/18 06/22/18 Range/Units 02:50 02:50 WBC 13.28 H (3.98-10.04) K/mm3 RBC 4.07 (3.98-5.22) M/mm3 Hgb 12.8 (11.2-15.7) gm/L Hct 36.5 (34.1-44.9) % MCV 89.7 (79.4-94.8) fl MCH 31.4 (25.6-32.2) pg MCHC 35.1 (32.2-35.5) g/dl RDW Std Deviation 45.3 (36.4-46.3) fL Plt Count 157 L (182-369) K/mm3 MPV 11.3 (9.4-12.3) fl Blood Type A POSITIVE Gel Antibody Screen Negative Med Orders - Current: Current Medications Calcium Carbonate/Glycine (Tums) 1,000 mg PO Q2H PRN PRN Reason: Indigestion Last Admin: 06/22/18 02:59 Dose: 1,000 mg Ephedrine Sulfate (Ephedrine Sulfate) 5 mg IVPUSH ASDIRECTED PRN PRN Reason: Hypotension Fentanyl (Sublimaze) 100 mcg EPIDUR Q3H PRN PRN Reason: Pain Last Admin: 06/22/18 03:44 Dose: 100 mcg Fentanyl/Bupivacaine HCl (Dzsrodyl-Grawj-Ke 2 Mcg/Ml-0.125%) 100 ml EPIDUR ASDIRECTED PRN PRN Reason: Pain Last Admin: 06/22/18 03:45 Dose: 100 ml Lactated Ringer's (Ringers, Lactated) 1,000 mls @ 100 mls/hr IV ASDIRECTED LORRIE Last Admin: 06/22/18 08:26 Dose: 100 mls/hr Phenylephrine HCl 1 mg/ Sodium (Chloride) 10.1 mls @ 1 mls/sec IV TITRATE LORRIE; Protocol Oxytocin 20 unit/ Lactated (Ringer's) 1,002 mls @ 500 mls/hr IV ASDIRECTED LORRIE ; Protocol Nalbuphine HCl (Nubain) 10 mg IVPUSH Q2H PRN PRN Reason: pain Ondansetron HCl (Zofran) 4 mg IVPUSH Q4H PRN PRN Reason: Nausea/Vomiting Last Admin: 06/22/18 03:04 Dose: 4 mg Ondansetron HCl (Zofran) 4 mg IVPUSH ONETIME PRN PRN Reason: Nausea/Vomiting Sodium Chloride (Saline Flush) 10 ml FLUSH ASDIRECTED PRN PRN Reason: Keep Vein Open Discontinued Medications Lidocaine HCl (Xylocaine 1%) 20 ml INJECT ONETIME ONE Stop: 06/22/18 02:38 - Exam General: Alert, Oriented HEENT: Pupils Equal, Mucous Membr. Moist/[place] Neck: Supple Lungs: Clear to Auscultation, Normal Respiratory Effort Cardiovascular: Regular Rate, Regular Rhythm GI/Abdominal Exam: Normal Bowel Sounds, Soft, Non-Tender Extremities: Normal Inspection, Normal Range of Motion, Non-Tender, No Pedal Edema, Normal Capillary Refill Skin: Warm, Dry, Intact Psy/Mental Status: Alert, Normal Affect, Normal Mood - Problem List & Annotations (1) 40 weeks gestation of SNOMED Code(s): 06767949 Code(s): Z3A.40 - 40 WEEKS GESTATION OF Status: Acute Current Visit: Yes (2) Thin meconium stained amniotic fluid SNOMED Code(s): 570202259 Code(s): P96.83 - MECONIUM STAINING Status: Acute Current Visit: Yes (3) Meconium stained amniotic fluid, delivered, current hospitalization SNOMED Code(s): 850988302, 817293407 Code(s): O77.0 - LABOR AND DELIVERY COMPLICATED BY MECONIUM IN AMNIOTIC FLUID Status: Acute Current Visit: Yes (4) Factor V Leiden mutation affecting SNOMED Code(s): 702613857 Code(s): O99.119 - OTH DIS OF BLD/BLD-FORM ORG/IMMUN MECHNSM COMP PREG,UNSP TRI; D68.51 - ACTIVATED PROTEIN C RESISTANCE Status: Acute Current Visit: Yes (5) Factor V Leiden SNOMED Code(s): 845946784 Code(s): D68.51 - ACTIVATED PROTEIN C RESISTANCE Status: Acute Current Visit: Yes (6) Second degree perineal laceration during delivery SNOMED Code(s): 3747684 Code(s): O70.1 - SECOND DEGREE PERINEAL LACERATION DURING DELIVERY Status: Acute Current Visit: Yes (7) Excessive growth affecting management of mother, delivered SNOMED Code(s): 19084145, 251939547 Code(s): O36.60X0 - MATERNAL CARE FOR EXCESS GROWTH, UNSP TRIMESTER, UNSP Status: Acute Current Visit: Yes - Problem List Review Problem List Initiated/Reviewed/Updated: No - My Orders Last 24 Hours: My Active Orders 06/22/18 02:37 Activity as Tolerated [RC] PFP Communication Order [RC] ASDIRECTED Notify Provider [RC] PFP Notify Provider [RC] PRN Peripheral IV Care [RC] Q2HR Urinary Catheter Assessment [RC] ASDIRECTED Vital Signs [RC] PER UNIT ROUTINE Calcium Carbonate [Tums] 1,000 mg PO Q2H PRN Nalbuphine [Nubain] 10 mg IVPUSH Q2H PRN Ondansetron [Zofran] 4 mg IVPUSH Q4H PRN Sodium Chloride 0.9% [Saline Flush] 10 ml FLUSH ASDIRECTED PRN Electronic Heart Tones Ext w TOCO [WOMSER] Routine Electronic Heart Tones Internal [WOMSER] Per Unit Routine Peripheral IV Insertion Adult [OM.PC] Routine Resuscitation Status Routine 06/22/18 02:45 Insert Urinary Catheter [OM.PC] Q24H Lactated Ringers [Ringers, Lactated] 1,000 ml IV ASDIRECTED 06/22/18 02:50 RAPID PLASMA REAGIN,RPR [CHEM] Routine 06/22/18 02:57 Patient Status [ADT] Routine 06/22/18 05:10 Antiembolic Devices [RC] PER UNIT ROUTINE SCD [Sequential Compression Device] [OM.PC] Routine 06/22/18 06:30 Oxytocin [Pitocin] 20 unit Lactated Ringers [Ringers, Lactated] 1,000 ml IV ASDIRECTED 06/22/18 Breakfast Regular Diet [DIET] - Assessment Assessment:: Spontaneous vaginal delivery see note above - Plan Plan:: Plan delivery Brief History: [facility] LIVE . L/D Delivery Note. [facility]: [id number]. Date of : Patient Status: Inpatient. [facility] [id number]. Date: 06/22/18 12:32Initialization Date: 06/22/18 12:32. L & D Note. - General Info. Date of Service: 06/22/18. Mother's Due Date: 06/22/18. - Delivery Note. Labor: Spontaneous, Augmented by ARM. Delivery Outcome: Livebirth (Live female 06/22/18Sunday at 1200 hrs. FRITZ. Apgars 8/9 meconium-stained amnionic fluid [email or web address] 4620 g/10 lbs. 3 oz.). Delivery Method: Spontaneous Vaginal Delivery-Single. Infant Delivery Mode: Spontaneous. Presentation: Left Occiput Anterior (FRITZ). Nuchal Cord: None. Prep: Povidone-Iodine (Betadine. Anesthesia Type: Epidural. Amniotic Fluid Description: Meconium Stained. Episiotomy Type: None. Laceration: 2nd Degree ("Y-shaped" midline perineum repair with 3-0 Monocryl 2). Suture type: Other (Monocryl 2). Suture size: 3-0. Placenta: Intact, Spontaneous (Intact discarded delivered at 1204 hrs. Sunday06/22/18.). Cord: 3 Vessels. Estimated Blood Loss: 500. Resuscitation Needed: No. [place]: Bulb Syringe, Stimulated, Warmed, [employer] Used, Warmer Used. Provider: Slick Wayne. Score 1 min: 8. Score 5 min: 9 (Dr Ambrosio called ). - General Info. Date of Service: 06/22/18. Functional Status: Reports: Pain Controlled. - Review of Systems. General: Reports: No Symptoms. HEENT: Reports: No Symptoms. Pulmonary: Reports: No Symptoms. Cardiovascular: Reports : No Symptoms. Gastrointestinal: Reports: No Symptoms. Genitourinary: Reports : No Symptoms. Musculoskeletal: Reports: No Symptoms. Skin: Reports: No Symptoms. Neurological: Reports: No Symptoms. Psychiatric: Reports: No Symptoms. - Patient Data. Vitals - Most Recent: Last Vital Signs. Temp 98.2 F 06/22/18 03:40. Pulse 76 06/22/18 05:31. Resp 18 06/22/18 03:40. BP 119/ 66 06/22/18 04:30. Pulse Ox 100 06/22/18 03:40. Weight - Most Recent: 206 lb 14.4 oz. I&O - Last 24 Hours: Intake & Output. 06/21/1904/. 22:5906:5914:59. Intake [id number]. [id number]. Lab Results Last 24 Hours: Laboratory Results - last 24 hr. 06/22/1904Range/Units. 02:5002:50. WBC 13.28 H (3.98-10.04) K/mm3. RBC 4.07 (3.98-5.22) M/mm3. Hgb 12.8 (11.2- 15.7) gm/L. Hct 36.5 (34.1-44.9) %. MCV 89.7 (79.4-94.8) fl. MCH 31.4 ( 25.6-32.2) pg. MCHC 35.1 (32.2-35.5) g/dl. RDW Std Deviation 45.3 (36.4-46.3 ) fL. Plt Count 157 L (182-369) K/mm3. MPV 11.3 (9.4-12.3) fl. Blood Type A POSITIVE. Gel Antibody Screen Negative. Med Orders - Current: Current Medications. Calcium Carbonate/Glycine (Tums) 1,000 mg PO Q2H PRN. PRN Reason : Indigestion. Last Admin: 06/22/18 02:59 Dose: 1,000 mg. Ephedrine Sulfate ( Ephedrine Sulfate) 5 mg IVPUSH ASDIRECTED PRN. PRN Reason: Hypotension. Fentanyl (Sublimaze) 100 mcg EPIDUR Q3H PRN. PRN Reason: Pain. Last Admin: 03:44 Dose: 100 mcg. Fentanyl/Bupivacaine HCl (Boxxqniv-Cunjz-Ma 2 Mcg/ Ml-0.125%) 100 ml EPIDUR ASDIRECTED PRN. PRN Reason: Pain. Last Admin: 03:45 Dose: 100 ml. Lactated Ringer's (Ringers, Lactated) 1,000 mls @ 100 mls/hr IV ASDIRECTED LORRIE. Last Admin: 06/22/18 08:26 Dose: 100 mls/hr. Phenylephrine HCl 1 mg/ Sodium (Chloride) 10.1 mls @ 1 mls/sec IV TITRATE [facility]; Protocol. Oxytocin 20 unit/ Lactated (Ringer's) 1,002 mls @ 500 mls/hr IV ASDIRECTED [facility]; Protocol. Nalbuphine HCl (Nubain) 10 mg IVPUSH Q2H PRN. PRN Reason: pain. Ondansetron HCl (Zofran) 4 mg IVPUSH Q4H PRN. PRN Reason: Nausea/Vomiting. Last Admin: 06/22/18 03:04 Dose: 4 mg. Ondansetron HCl ( Zofran) 4 mg IVPUSH ONETIME PRN. PRN Reason: Nausea/Vomiting. Sodium Chloride (Saline Flush) 10 ml FLUSH ASDIRECTED PRN. PRN Reason: Keep Vein Open. Discontinued Medications. Lidocaine HCl (Xylocaine 1%) 20 ml INJECT ONETIME ONE. Stop: 06/22/18 02:38. - Exam. General: Alert, Oriented. HEENT: Pupils Equal, Mucous Membr. Moist/[place]. Neck: Supple. Lungs: Clear to Auscultation, Normal Respiratory Effort. Cardiovascular: Regular Rate, Regular Rhythm. GI/Abdominal Exam: Normal Bowel Sounds, Soft, Non-Tender. Extremities : Normal Inspection, Normal Range of Motion, Non-Tender, No Pedal Edema, Normal Capillary Refill. Skin: Warm, Dry, Intact. Psy/Mental Status: Alert, Normal Affect, Normal Mood. - Problem List & Annotations. (1) 40 weeks gestation of . SNOMED Code(s): 65310392. Code(s): Z3A.40 - 40 WEEKS GESTATION OF Status: Acute Current Visit: Yes. (2) Thin meconium stained amniotic fluid. SNOMED Code(s): 063759769. Code(s): P96.83 - MECONIUM STAINING Status: Acute Current Visit: Yes. (3) Meconium stained amniotic fluid, delivered, current hospitalization. SNOMED Code(s): 285568512, 385454846. Code(s): O77.0 - LABOR AND DELIVERY COMPLICATED BY MECONIUM IN AMNIOTIC FLUID Status: Acute Current Visit: Yes. (4) Factor V Leiden mutation affecting . SNOMED Code(s): 930656076. Code(s): O99.119 - OTH DIS OF BLD/BLD-FORM ORG/IMMUN MECHNSM COMP PREG,UNSP TRI; D68.51 - ACTIVATED PROTEIN C RESISTANCE Status: Acute Current Visit: Yes. (5) Factor V Leiden. SNOMED Code(s): 153403283. Code(s): D68.51 - ACTIVATED PROTEIN C RESISTANCE Status: Acute Current Visit: Yes. (6) Second degree perineal laceration during delivery. SNOMED Code(s): 4872837. Code(s): O70.1 - SECOND DEGREE PERINEAL LACERATION DURING DELIVERY Status: Acute Current Visit: Yes. (7) Excessive growth affecting management of mother, delivered. SNOMED Code(s): 95796709, 196090834. Code(s): O36.60X0 - MATERNAL CARE FOR EXCESS GROWTH, UNSP TRIMESTER, UNSP Status: Acute Current Visit: Yes. - Problem List Review. Problem List Initiated/Reviewed/Updated: No. - My Orders. Last 24 Hours: My Active Orders. 06/22/18 02:37. Activity as Tolerated [RC] PFP. Communication Order [RC] ASDIRECTED. Notify Provider [ RC] PFP. Notify Provider [RC] PRN. Peripheral IV Care [RC] Q2HR. Urinary Catheter Assessment [RC] ASDIRECTED. Vital Signs [RC] PER UNIT ROUTINE. Calcium Carbonate [Tums] 1,000 mg PO Q2H PRN. Nalbuphine [Nubain] 10 mg IVPUSH Q2H PRN. Ondansetron [Zofran] 4 mg IVPUSH Q4H PRN. Sodium Chloride 0.9% [Saline Flush] 10 ml FLUSH ASDIRECTED PRN. Electronic Heart Tones Ext w TOCO [WOMSER] Routine. Electronic Heart Tones Internal [WOMSER] Per Unit Routine. Peripheral IV Insertion Adult [OM.PC] Routine. Resuscitation Status Routine. 06/22/18 02:45. Insert Urinary Catheter [OM.PC] Q24H. Lactated Ringers [Ringers, Lactated] 1,000 ml IV ASDIRECTED. 06/22/18 02 :50. RAPID PLASMA REAGIN,RPR [CHEM] Routine. 06/22/18 02:57. Patient Status [ ADT] Routine. 06/22/18 05:10. Antiembolic Devices [RC] PER UNIT ROUTINE. SCD [Sequential Compression Device] [OM.PC] Routine. 06/22/18 06:30. Oxytocin [ Pitocin] 20 unit Lactated Ringers [Ringers, Lactated] 1,000 ml IV ASDIRECTED. 06/22/18 Breakfast. Regular Diet [DIET]. - Assessment. Assessment:: Spontaneous vaginal delivery see note above. - Plan. Plan:: Plan delivery Diagnosis: Stroke: No - Discharge Data Discharge Date: 06/24/18 Discharge Disposition: Home, Self-Care 01 Condition: Good - Discharge Diagnosis/Problem(s) (1) 40 weeks gestation of SNOMED Code(s): 03157536 ICD Code: Z3A.40 - 40 WEEKS GESTATION OF Status: Acute Current Visit: Yes (2) Thin meconium stained amniotic fluid SNOMED Code(s): 347240731 ICD Code: P96.83 - MECONIUM STAINING Status: Acute Current Visit: Yes (3) Meconium stained amniotic fluid, delivered, current hospitalization SNOMED Code(s): 016742884, 856393299 ICD Code: O77.0 - LABOR AND DELIVERY COMPLICATED BY MECONIUM IN AMNIOTIC FLUID Status: Acute Current Visit: Yes (4) Factor V Leiden mutation affecting SNOMED Code(s): 630254246 ICD Code: O99.119 - OTH DIS OF BLD/BLD-FORM ORG/IMMUN MECHNSM COMP PREG,UNSP TRI; D68.51 - ACTIVATED PROTEIN C RESISTANCE Status: Acute Current Visit: Yes (5) Factor V Leiden SNOMED Code(s): 454250742 ICD Code: D68.51 - ACTIVATED PROTEIN C RESISTANCE Status: Acute Current Visit: Yes (6) Second degree perineal laceration during delivery SNOMED Code(s): 5201440 ICD Code: O70.1 - SECOND DEGREE PERINEAL LACERATION DURING DELIVERY Status : Acute Current Visit: Yes (7) Excessive growth affecting management of mother, delivered SNOMED Code(s): 63487783, 639221283 ICD Code: O36.60X0 - MATERNAL CARE FOR EXCESS GROWTH, UNSP TRIMESTER, UNSP Status: Acute Current Visit: Yes - Patient Summary/Data Complications: Anemia and patient received 1 unit of blood transfusion. Symptomatic before blood transfusion asymptomatic now. Hemoglobin 10.4-1 unit of blood. Consults: None Hospital Course: Uneventful - Patient Instructions Diet: Usual Diet as Tolerated Driving: Do Not Drive (48 hours) Showering/Bathing: May Shower Notify Provider of: Fever, Increased Pain, Swelling and Redness, Drainage, Nausea and/or Vomiting - Discharge Plan *PRESCRIPTION DRUG MONITORING PROGRAM REVIEWED*: Not Applicable *COPY OF PRESCRIPTION DRUG MONITORING REPORT IN PATIENT KARINE: Not Applicable Home Medications: Home Meds Enoxaparin [Lovenox] 40 mg SUBCUT DAILY 06/22/18 [History] Pnv No.122/Iron/Folic Acid [ Multi Tablet] 1 each PO DAILY 06/22/18 [ History] Acetaminophen [Tylenol] 650 mg PO Q6H PRN tablet 06/24/18 [Rx] Benzocaine/Menthol [Dermoplast Pain Relief [place]] 0 gm TOP ASDIRECTED PRN canister 06/24/18 [Rx] Docusate Sodium [Colace] 100 mg PO BID PRN cap 06/24/18 [Rx] Lanolin [Lansinoh HPA] 1 applic TOP ASDIRECTED PRN tube 06/24/18 [Rx] Witch Ness [Tucks] 1 pad TOP ASDIRECTED PRN pad 06/24/18 [Rx] Referrals: Demetrice Snell MD [Physician] - (Patient will call today to be seen by Dr. Snell at [facility]) - Discharge Summary/Plan Comment DC Time >30 min.: No - Patient Data Vitals - Most Recent: Last Vital Signs Temp 98.4 F 06/24/18 05:16 Pulse 62 06/24/18 05:16 Resp 14 06/24/18 05:16 BP 107/77 06/24/18 05:16 Pulse Ox 98 06/24/18 05:16 Weight - Most Recent: 206 lb 14.4 oz I&O - Last 24 hours: Intake & Output 06/23/18 06/23/18 06/24/18 14:59 22:59 06:59 Intake Total 120 360 Balance 120 360 Lab Results - Last 24 hrs: Laboratory Results - last 24 hr 06/22/18 06/24/18 Range/Units 02:50 04:32 WBC 10.93 H (3.98-10.04) K/mm3 RBC 3.38 L (3.98-5.22) M/mm3 Hgb 10.4 L (11.2-15.7) gm/L Hct 30.7 L (34.1-44.9) % MCV 90.8 (79.4-94.8) fl MCH 30.8 (25.6-32.2) pg MCHC 33.9 (32.2-35.5) g/dl RDW Std Deviation 48.2 H (36.4-46.3) fL Plt Count 148 L (182-369) K/mm3 MPV 10.4 (9.4-12.3) fl Neut % (Auto) 69.8 (34.0-71.1) % Lymph % (Auto) 20.7 (19.3-51.7) % [place] % (Auto) 6.2 (4.7-12.5) % Eos % (Auto) 2.7 (0.7-5.8) Baso % (Auto) 0.2 (0.1-1.2) % Neut # (Auto) 7.63 H (1.56-6.13) K/mm3 Lymph # (Auto) 2.26 (1.18-3.74) K/mm3 [place] # (Auto) 0.68 H (0.24-0.36) K/mm3 Eos # (Auto) 0.30 (0.04-0.36) K/mm3 Baso # (Auto) 0.02 (0.01-0.08) K/mm3 Crossmatch See Detail Med Orders - Current: Current Medications Acetaminophen (Tylenol) 650 mg PO Q4H PRN PRN Reason: mild pain or fever Last Admin: 06/24/18 02:26 Dose: 650 mg Benzocaine/Menthol (Dermoplast Pain Relief [place]) 0 gm TOP ASDIRECTED PRN PRN Reason: Pain Last Admin: 06/22/18 16:44 Dose: 1 can Docusate Sodium (Colace) 100 mg PO BID PRN PRN Reason: Constipation Last Admin: 06/23/18 21:25 Dose: 100 mg Emollient Ointment (Lansinoh Hpa) 0 gm TOP ASDIRECTED PRN PRN Reason: Sore Nipples Last Admin: 06/22/18 20:18 Dose: 1 tube Enoxaparin Sodium (Lovenox) 40 mg SUBCUT DAILY@1215 [facility]: 06/25/18 12:16 Last Admin: 06/23/18 12:31 Dose: 40 mg Oxycodone/Acetaminophen (Percocet 325-5 Mg) 1 tab PO Q4H PRN PRN Reason: Pain (moderate 4-6) Last Admin: 06/23/18 16:49 Dose: 1 tab Witch Ness (Tucks) 1 pad TOP ASDIRECTED PRN PRN Reason: Perineal Comfort Measure Last Admin: 06/22/18 15:36 Dose: 1 tub Discontinued Medications Calcium Carbonate/Glycine (Tums) 1,000 mg PO Q2H PRN PRN Reason: Indigestion Last Admin: 06/22/18 02:59 Dose: 1,000 mg Enoxaparin Sodium (Lovenox) 40 mg SUBCUT DAILY@2100 [facility] Stop: 06/24/18 21:01 Last Admin: 06/22/18 20:09 Dose: Not Given Ephedrine Sulfate (Ephedrine Sulfate) 5 mg IVPUSH ASDIRECTED PRN PRN Reason: Hypotension Fentanyl (Sublimaze) 100 mcg EPIDUR Q3H PRN PRN Reason: Pain Last Admin: 06/22/18 03:44 Dose: 100 mcg Fentanyl/Bupivacaine HCl (Nbdieipk-Tyhio-Sr 2 Mcg/Ml-0.125%) 100 ml EPIDUR ASDIRECTED PRN PRN Reason: Pain Last Admin: 06/22/18 03:45 Dose: 100 ml Lactated Ringer's (Ringers, Lactated) 1,000 mls @ 100 mls/hr IV ASDIRECTED [facility] Last Admin: 06/22/18 08:26 Dose: 100 mls/hr Phenylephrine HCl 1 mg/ Sodium (Chloride) 10.1 mls @ 1 mls/sec IV TITRATE LORRIE; Protocol Oxytocin 20 unit/ Lactated (Ringer's) 1,002 mls @ 500 mls/hr IV ASDIRECTED [facility] ; Protocol Last Admin: 06/22/18 12:15 Dose: 500 mls/hr Sodium Chloride (Normal Saline) 500 mls @ 125 mls/hr IV ONETIME ONE Stop: 06/23/18 17:06 Last Admin: 06/23/18 14:40 Dose: Not Given Sodium Chloride (Normal Saline) Confirm Administered Dose 500 mls @ as directed .ROUTE .STK-MED ONE Stop: 06/23/18 14:37 Last Admin: 06/23/18 14:40 Dose: Not Given Lidocaine HCl (Xylocaine 1%) 20 ml INJECT ONETIME ONE Stop: 06/22/18 02:38 Last Admin: 06/22/18 19:28 Dose: Not Given Misoprostol (Cytotec) 200 mcg PO Q4H [place]RIE Stop: 06/23/18 16:31 Last Admin: 06/23/18 16:49 Dose: 200 mcg Nalbuphine HCl (Nubain) 10 mg IVPUSH Q2H PRN PRN Reason: pain Ondansetron HCl (Zofran) 4 mg IVPUSH Q4H PRN PRN Reason: Nausea/Vomiting Last Admin: 06/22/18 03:04 Dose: 4 mg Ondansetron HCl (Zofran) 4 mg IVPUSH ONETIME PRN PRN Reason: Nausea/Vomiting Sodium Chloride (Saline Flush) 10 ml FLUSH ASDIRECTED PRN PRN Reason: Keep Vein Open
[2018-06-24 09:42] VITALS: BP 131/82
[2018-06-24] MEDS ORDERED: Measles, Mumps & Rubella Vaccine 0.5 ML SDV SUBCUT ONE (13:00)
[2018-06-24] MEDS: Enoxaparin 40 MG/0.4 ML Syringe SUBCUT SCH (16:01)
== END 2018-06-24 15:15 | disposition home or self-care (01) | DRG 560 ==
LOC: JD.OB 02:11 → JD.OBCHECK 02:11 → JD.OB 02:57 → OBSVTOIN 12:00 → JD.OB 12:01
PROVIDERS: ADMIT Obstetrics & Gynecology; ATTEND Obstetrics & Gynecology
PROC: 10907ZC Drainage of Amniotic Fluid, Therapeutic from Products of Conception, Via Natural or Artificial Opening (ICD-10-PCS; principal; 2018-06-22)
PROC: 10E0XZZ Delivery of Products of Conception, External Approach (ICD-10-PCS; principal; 2018-06-22)
PROC: 0KQM0ZZ Repair Perineum Muscle, Open Approach (ICD-10-PCS; principal; 2018-06-22)
PROC: 3E0R3BZ Introduction of Anesthetic Agent into Spinal Canal, Percutaneous Approach (ICD-10-PCS; 2018-06-22)
PROC: 00HU33Z Insertion of Infusion Device into Spinal Canal, Percutaneous Approach (ICD-10-PCS; 2018-06-22)
PROC: 3E0234Z Introduction of Serum, Toxoid and Vaccine into Muscle, Percutaneous Approach (ICD-10-PCS; 2018-06-24)
DX: O77.0 Labor and delivery complicated by meconium in amniotic fluid (principal); Z37.0 Single live birth; O99.12 Other diseases of the blood and blood-forming organs and certain disorders involving the immune mechanism complicating childbirth; D68.51 Activated protein C resistance; O70.1 Second degree perineal laceration during delivery; O36.63X0 Maternal care for excessive fetal growth, third trimester, not applicable or unspecified; Z3A.40 40 weeks gestation of pregnancy; O99.62 Diseases of the digestive system complicating childbirth; K21.9 Gastro-esophageal reflux disease without esophagitis; Z23 Encounter for immunization; Z88.7 Allergy status to serum and vaccine; Z86.718 Personal history of other venous thrombosis and embolism
CPT/HCPCS: 01967; 36415; 36430; 51702; 59025; 59409; 85025; 85027; 86592; 86850; 86900; 86901; 86922; 90471; 90707; A9270-GY; J1650; J2405; J2590; J3010; J7040; J7120; P9016